=== PATIENT | female | born 1955 | race Two or more races ===

== ENCOUNTER → 2020-07-13 | Outpatient (CLI) | payer MEDICAID ==
--- NOTE | 2020-07-13 13:20 | RADIOLOGY REPORT (SQ) ---
EXAM DESCRIPTION: KNEE RIGHT 3 VIEWS IMAGES COMPLETED DATE/TIME: 07/13/2020 11:34 am REASON FOR STUDY: PAIN IN RIGHT KNEE M25.561 PAIN IN RIGHT KNEE COMPARISON: None. NUMBER OF VIEWS: Three views TECHNIQUE: AP, lateral, and sunrise patella radiographic images acquired of the right knee. LIMITATIONS: None. FINDINGS: MINERALIZATION: Normal. BONES: There is a right knee arthroplasty. Lucency surrounds the lateral aspect of the tibial compon ent. The femoral component also demonstrates some lucency at the anterior aspect. No hardware fract ure. JOINT: There is a moderate anterior joint effusion. SOFT TISSUES: No soft tissue swelling. No radio-opaque foreign body. OTHER: No other significant finding. IMPRESSION: Right knee arthroplasty with lucency surrounding the lateral aspect of the tibial compon ent in the anterior aspect of the femoral component, suggestive of loosening. Clinical correlation. . TECHNICAL DOCUMENTATION: JOB ID: [id number] 2010 [employer]- All Rights Reserved Reading location - IP/workstation name: [email or web address]
== END ==
LOC: OD 11:50
PROVIDERS: ATTEND Nurse Practitioner Family
DX: M25.561 Pain in right knee (principal)